=== PATIENT | male | born 1985 | race Caucasian/White ===

== ENCOUNTER 2019-04-17 00:56 | Emergency (ER) | payer SELFPAY ==
[2019-04-17 01:10] VITALS: BP 148/106; PULSE 78; RESP 16; TEMP 36.4; O2SAT 98
--- NOTE | 2019-04-17 01:19 | ED_ITS ---
I attest that this documentation has been prepared under the direction and in the presence of Eddi Palumbo MD. Kartik Winston Scribe 04/17/19;01:19 HPI - Dental/Oral General Chief complaint: Dental/Oral Stated complaint: toothache Time Seen by Provider: 04/17/19 01:12 Source: patient and RN notes reviewed Mode of arrival: ambulatory Limitations: no limitations History of Present Illness HPI Narrative: Pt is a 33 y/o male presenting to the ED c/o dental pain. Pt reports he has been experiencing constant rt sided dental pain for about 4 months. Pt states he has not been to a dentist due to financial issues. Pt denies fever or chills. Onset (ago): month(s) (4) Duration: constant Associated symptoms: other (None) Related Data Allergies Allergy/AdvReac Type Severity Reaction Status Date / Time No Known Allergies Allergy Unknown Unverified 07/21/18 14:23 Review of Systems Review of Systems: All systems reviewed & are unremarkable except as noted in HPI and below ENT: Reports dental pain (Rt sided) PMFSH Past Medical History Medical History Bronchitis Surgical History Surgical History No significant past surgical history Social History Social History Smoking packs per day: 1 Smoking cigarettes per day: 20.0 Years smoked: 11 Smoking pack-years: 11.00 Smoking status: Current every day smoker Tobacco type: cigarettes Exam Narrative: Exam Narrative: GENERAL: Well-appearing, well-nourished, and in no acute distress. HEAD: Normocephalic, atraumatic. EYES: PERRLA and EOMI. ENT: Nares clear, Mucous membranes moist. Multiple dental caries, no obvious dental abscess NECK: Supple. CHEST: Clear to auscultation. No respiratory distress. HEART: Regular rate and rhythm. No murmur heard. Normal peripheral pulses. EXTREMITIES: Normal range of motion. No edema. SKIN: Warm, dry, no rash. NEURO: No focal deficits. Alert and oriented x3. PSYCH: Normal mood and affect. Course Vital Signs Vital signs: Vital Signs Temperature 36.4 C 04/17/19 01:10 Pulse Rate 78 04/17/19 01:10 Respiratory Rate 16 04/17/19 01:10 Blood Pressure 148/106 H 04/17/19 01:10 Pulse Oximetry 98 04/17/19 01:10 Temperature 36.4 C 04/17/19 01:10 Pulse Rate 78 04/17/19 01:10 Respiratory Rate 16 04/17/19 01:10 Blood Pressure 148/106 H 04/17/19 01:10 Pulse Oximetry 98 04/17/19 01:10 Discharge Plan Discharge Clinical Impression: Toothache Patient Disposition: Home, Self-Care Condition: Stable Instructions: Toothache (ED) Additional Instructions: Follow with a Dentist. Prescriptions: New amoxicillin 500 mg tablet 500 mg PO Q8H Qty: 30 RF: 0 tramadol 50 mg tablet 50 mg PO Q6H PRN (Reason: pain) Qty: 20 RF: 0 Follow-up/Referrals: UNKNOWN,DOCTOR [Primary Care Provider] - Stand Alone Forms: Work/School Release IP Time of Disposition: 01:54 I personally performed the services described in this documentation. All medical record entries made by the scribe were at my direction and in my presen
[2019-04-17 02:03] VITALS: BP 149/99; PULSE 81; RESP 16; O2SAT 99
== END 2019-04-17 02:06 | disposition home or self-care (01) ==
PROVIDERS: Emergency Provider Family Medicine
DX: K08.89 Other specified disorders of teeth and supporting structures (principal); F17.210 Nicotine dependence, cigarettes, uncomplicated
CPT/HCPCS: 99283

== ENCOUNTER 2020-04-08 07:59 | Emergency (ER) | payer OTHER, SELFPAY ==
--- NOTE | ~2020-04-08 | XR_ITS ---
XR abdomen/kub 1V DATE: 04/08/2020 09:02 INDICATION: Mid abdominal pain, vomiting, constipation TECHNIQUE: AP projection, 2 views COMPARISON: None FINDINGS: There is a prominent amount fecal material throughout the colon, consistent with clinical c omplaint of constipation. No bowel obstruction is evident. Associated as are intact. No visceromegaly is noted. No significant abnormal calcification. Included skeletal structures are unremarkable. IMPRESSION: Prominent amount of fecal material throughout the colon, consistent with clinical complai nt of constipation Reviewed, dictated and finalized at [facility] Reviewed, dictated and finalized at [facility] [employer] IMPRESSION: Prominent amount of fecal material throughout the colon, consistent with clinical complaint of constipation
--- NOTE | ~2020-04-08 | US_ITS ---
US abdomen limited DATE: 04/08/2020 09:19 INDICATION: Right upper quadrant abdominal pain, epigastric abdominal pain TECHNIQUE: Real-time imaging of liver, pancreas, gallbladder COMPARISON: None FINDINGS: Normal hepatopedal portal venous flow. There is hepatic steatosis. No hepatic space-occupying mass lesion is evident. The pancreas is not well-demonstrated due to interference from bowel. There is an apparent filling defect of the gallbladder neck. Positive sonographic Pastrana's sign. The common bile duct measures 3.3 mm, normal. IMPRESSION: Suspected gallbladder neck stone. Positive sonographic Pastrana's sign. Consider radionuclide hepatobiliary scan if there is clinical concern for acute cholecystitis. Reviewed, dictated and finalized at [facility] Reviewed, dictated and finalized at [facility] IMPRESSION: Suspected gallbladder neck stone. Positive sonographic Pastrana's sig n. Consider radionuclide hepatobiliary scan if there is clinical concern for acute cholecystitis.
--- NOTE | 2020-04-08 08:04 | ED.ABDPAIN ---
HPI - Abdominal Pain General Chief Complaint: Abdominal Pain Stated Complaint: abd pain, vomiting Time Seen by Provider: 04/08/20 08:04 History of Present Illness HPI narrative: Upper abdominal pin and vomiting for the past 2 days. Feels like burning and squeezing. Worse after eating. He reports constipation, but had bowel movement prior to coming. He says that he had a CT done at an outside hospital which was negative. He was supposed to get an US of his gall bladder, but ended up in long-term in the mean time. His symptoms had largely improved, but just returned. Related Data Allergies Allergy/AdvReac Type Severity Reaction Status Date / Time No Known Allergies Allergy Unknown Unverified 04/08/20 08:15 Review of Systems Review of Systems: All systems reviewed & are unremarkable except as noted in HPI and below Constitutional: Constitutional: Denies fever(s) Eyes: Eyes: Reports no additional eye complaints ENT: Denies sore throat Cardiovascular: Cardiovascular: Denies chest pain Respiratory: Respiratory: Denies dyspnea Gastrointestinal: Gastrointestinal: Reports abdominal pain, Reports constipation, Reports nausea and Reports vomiting Genitourinary: Genitourinary: Reports no additional male genitourinary complaints Musculoskeletal: Musculoskeletal: Denies back pain Neurologic: Denies dizziness and Denies weakness PMFSH Past Medical History Medical History Bronchitis Surgical History Surgical History No significant past surgical history Social History Social History Smoking packs per day: 1 Smoking cigarettes per day: 20.0 Years smoked: 11 Smoking pack-years: 11.00 Smoking status: Current every day smoker Tobacco type: cigarettes Gender identity (if verbalized by the patient): Male Exam Const: General: healthy appearing, no acute distress and alert Orientation/consciousness: patient oriented x3 HENMT: Head: normal to inspection Neck: Neck: normal visual inspection and no lymphadenopathy Chest: Chest palpation & inspection: no tenderness Resp: Effort & Inspection: normal respiratory effort Auscultation: clear to auscultation bilaterally, no rales, no rhonchi and no wheezes Cardio: Jugular venous distension: no JVD Rate: regular rate Rhythm: regular rhythm Heart sounds: no murmurs GI: Inspection: distended GI Palp: Yes Soft to palpation and Yes Tenderness to palpation present (GI) (epigastric) Skin: General skin exam: normal color Neuro: General: patient oriented x3 and moves all extremities Speech: normal speech Extrem: General: no edema Psych: Appearance: well kempt Affect: normal affect Course Vital Signs Vital signs: Vital Signs Temperature 36.1 C L 04/08/20 08:12 Pulse Rate 87 04/08/20 08:12 Respiratory Rate 18 04/08/20 08:12 Blood Pressure 130/80 04/08/20 08:12 Pulse Oximetry 97 04/08/20 08:12 Temperature 36.1 C L 04/08/20 08:12 Pulse Rate 87 04/08/20 10:34 Respiratory Rate 18 04/08/20 10:34 Blood Pressure 129/80 04/08/20 10:34 Pulse Oximetry 98 04/08/20 10:34 MDM - Abdominal Pain MDM Narrative Medical decision making narrative: Very large quantity of stool on x-ray. US consistent with cholecystitis. No fever. Mild elevation in white count. Case discussed with Dr. Da Silva he will see him in clinic next week. Differential Diagnosis Differential diagnosis: Likely abdominal pain, constipation, diverticulitis, gastroenteritis, pancreatitis, small bowel obstruction and other (cholecystitis) Medical Records Attestation: I reviewed the patient's medical records. Lab Data Attestation: I reviewed the patient's lab results. Result diagrams: 04/08/20 08:24 04/08/20 08:24 Labs: Lab Results 04/08/20 04/08/20 04/08/20 Range/Units 0
[2020-04-08 08:12] VITALS: BP 130/80; PULSE 87; RESP 18; TEMP 36.1; O2SAT 97
[2020-04-08 08:31] LABS: Basophils Percent Auto 0.3 % (0.2-1.2); Eosinophils Absolute Auto 0.4 K/mm3 (0-0.3); Eosinophils Percent Auto 2.9 % (0-4.4); Hematocrit 42.4 % (42.0-52.0); Hemoglobin 14.2 g/dL (14.0-18.0); Immature Granulocyte Absolute 0.05 K/mm3 (0.00-0.031); Immature Granulocyte Percent A 0.4 % (0-0.5); Lymphocytes Absolute Auto 4.25 K/mm3 (0.9-3.2); Lymphocytes Percent Auto 31.3 % (18.3-44.2); Mean Corpuscular HGB Conc 33.5 g/dl (32-36); Mean Corpuscular Hemoglobin 30.7 pg (26-34); Mean Corpuscular Volume 91.6 fl (80-100); Mean Platelet Volume 10.3 fl (7.4-10.4); Monocytes Absolute Auto 1.2 K/mm3 (0.1-0.6); Monocytes Percent Auto 9.1 % (2.6-8.5); Neutrophils Absolute Auto 7.6 K/mm3 (1.3-6.7); Platelet Count Result 274 k/mm3 (150-375); Red Blood Count 4.63 M/mm3 (4.6-6.20); Red Cell Distribution Width 13.5 % (11.5-14.5); White Blood Count 13.6 K/mm3 (4.5-10.0)
[2020-04-08] MEDS: ONDANSETRON INJ 4 MG/2 ML VIAL IV PUSH (08:39)
[2020-04-08] MEDS: PANTOPRAZOLE SODIUM IV 40 MG VIAL IV PUSH (08:39)
[2020-04-08 08:42] LABS: Alanine Aminotransferase 23 U/L (4-50); Albumin Level 4.1 g/dL (3.5-5.1); Alkaline Phosphatase 66 U/L (38-126); Anion Gap 6 mmol/L (8-16); Aspartate Amino Transferase 24 U/L (17-59); Bilirubin,Total 0.2 mg/dL (0.2-1.3); Blood Urea Nitrogen 17 mg/dL (9-20); Calcium 8.8 mg/dL (8.4-10.2); Carbon Dioxide 32 mmol/L (22-30); Chloride 105 mmol/L (98-107); Estimated CRCL calculation 116 ml/min; Estimated Glomerular Filt Rate > 60; Glucose 131 mg/dL (75-110); Lipase 87 U/L (23-300); Potassium 3.9 mmol/L (3.4-5.0); Sodium 143 mmol/L (137-145)
[2020-04-08 09:51] LABS: Add Urine Microscopic? NO; Appearance Urine Clear (Clear); Bilirubin Urine Negative (Negative); Blood Urine Negative (Negative); Color Urine Yellow (Yellow); Glucose Urine UA Negative (Negative); Ketones Urine Negative (Negative); Leukocyte Esterase Ur Negative LEU/UL (Negative); Mucus Urine Rare /lpf; Nitrate Urine Negative (Negative); Protein Urine Negative (Negative); RBC Urine 0-2 /hpf (0-2); Specific Grav Ur 1.024 (1.001-1.035); Urobilinogen Urine Negative mg/dL (<2.0); WBC Urine 0-3 /hpf
[2020-04-08 09:54] VITALS: BP 142/100; PULSE 86; RESP 18; O2SAT 98
[2020-04-08] MEDS: CIPROFLOXACIN 500 MG TAB PO (10:33)
[2020-04-08 10:34] VITALS: BP 129/80; PULSE 87; RESP 18; O2SAT 98
== END 2020-04-08 10:36 | disposition home or self-care (01) ==
PROVIDERS: Emergency Provider Emergency Medicine
DX: K81.0 Acute cholecystitis (principal); K59.00 Constipation, unspecified; F17.210 Nicotine dependence, cigarettes, uncomplicated
CPT/HCPCS: 36415; 74018; 76705; 80053; 81003; 83690; 85025; 96374; 96375; 99284; A9270; C9113; J2405

== ENCOUNTER 2023-08-20 12:29 | Emergency (ER) | payer OTHER, SELFPAY ==
[2023-08-20 12:37] VITALS: BP 158/97; PULSE 126; RESP 20; TEMP 36.3; O2SAT 98
--- NOTE | 2023-08-20 13:33 | ED.EYEPROB ---
HPI - Eye Problem General Chief complaint: Eye Problems Stated complaint: eye problems Time Seen by Provider: 08/20/23 12:46 History of Present Illness HPI Narrative: 37-year-old male presenting with red eyes. States that his left eye started turning red approximately 4 days ago. He was seen at another facility and started on an ointment. States that since that time the redness in his left eye has gotten much worse and now his right eye is turning red. States that the left eye feels scratchy but denies significant pain or photophobia. Denies visual changes. Denies excessive tearing but states he will wake up with some drainage. No recent injuries. Does not wear contacts. Related Data Allergies Allergy/AdvReac Type Severity Reaction Status Date / Time No Known Allergies Allergy Unknown Unverified 04/08/20 08:15 Review of Systems Review of Systems: All systems reviewed & are unremarkable except as noted in HPI and below PMFSH Past Medical History Medical History (Updated 08/20/23 @ 14:03 by Cindi Kiran MD) Bronchitis Surgical History Surgical History No significant past surgical history Social History Social History Smoking packs per day: 1 Smoking cigarettes per day: 20.0 Years smoked: 11 Smoking pack-years: 11.00 Smoking status: Current every day smoker Tobacco type: cigarettes Gender identity (if verbalized by the patient): Male Exam Narrative: GENERAL: Well-appearing and in no acute distress. HEAD: Normocephalic, atraumatic. EYES: PERRLA and EOMI. Both eyes are injected, left greater than right; no chemosis, no drainage ENT: Mucous membranes moist. NECK: Supple. CHEST: No respiratory distress. HEART: Regular rate and rhythm EXTREMITIES: Normal range of motion. SKIN: Warm, dry, no rash. NEURO: Alert and oriented x3. PSYCH: Normal mood and affect. Course Vital Signs Vital signs: Vital Signs Temperature 97.3 F L 08/20/23 12:37 Pulse Rate 126 H 08/20/23 12:37 Respiratory Rate 20 08/20/23 12:37 Blood Pressure 158/97 H 08/20/23 12:37 Pulse Oximetry 98 08/20/23 12:37 Temperature 97.3 F L 08/20/23 12:37 Pulse Rate 126 H 08/20/23 12:37 Respiratory Rate 20 08/20/23 12:37 Blood Pressure 158/97 H 08/20/23 12:37 Pulse Oximetry 98 08/20/23 12:37 MDM - Eye Problem MDM Narrative Medical decision making narrative: 37-year-old male presenting with red eyes. Exam remarkable for the above. He does appear to have bilateral conjunctivitis, left worse than right. I suspect a viral cause but he does complain of thick drainage at times. Fluorescein exam was performed and no corneal abrasions were appreciated. Will discontinue the polymyxin B ointment and start the patient on Cipro drops. Advised close Ophthalmology follow-up. Appropriate return precautions given. Discharged in stable condition. Differential Diagnosis Differential diagnosis: Likely corneal abrasion, conjunctivitis and corneal ulcer Medical Records Attestation: I reviewed the patient's medical records. Lab Data Attestation: I reviewed the patient's lab results. Critical Care Time Critical Care Time Critical Care Time: No Discharge Plan Discharge Clinical Impression: Bilateral conjunctivitis Patient Disposition: Home, Self-Care Condition: Stable Instructions: Antibiotic Form, Conjunctivitis (ED) Additional Instructions: Please discontinue the appointment and start the drops. Please follow-up closely with Ophthalmology at the number below. If your symptoms worsen or other concerning symptoms arise, please return to the ER. [facility] Ophthalmology: [phone] Prescriptions: New ciprofloxacin HCl 0.3 % drops See Rx Instructions .ROUTE .COMPLEX Qty: 5 0RF Rx Instructions: put 1-2 drps in affected eye(s) every 2hr up to 8 times/day
== END 2023-08-20 14:15 | disposition home or self-care (01) ==
PROVIDERS: Emergency Provider Emergency Medicine
DX: H10.9 Unspecified conjunctivitis (principal); F17.210 Nicotine dependence, cigarettes, uncomplicated
CPT/HCPCS: 99283

== ENCOUNTER 2023-08-23 16:31 | Emergency (ER) | payer OTHER, SELFPAY ==
[2023-08-23 16:38] VITALS: BP 174/147; PULSE 77; RESP 18; TEMP 36.4; O2SAT 98
--- NOTE | 2023-08-23 18:23 | ED.EYEPROB ---
HPI - Eye Problem General Chief complaint: Eye Problems Stated complaint: eye problem Time Seen by Provider: 08/23/23 18:01 History of Present Illness HPI Narrative: 38-year-old male presents to the emergency department for red and itchy eyes for 7 days. Patient states 7 days ago his left eye became red and itchy DP days later his right a was red and itchy. He was evaluated by outside facility and started on polymyxin B ointment. He was then seen at our emergency department on 08/20/2023 for persistent symptoms. The women was discontinued and he was started on ciprofloxacin drops. States he has been using these as directed but his symptoms are continuing to get worse. He states that his eyes feel scratchy and itchy. He is reporting drainage out of his eyes and states he wakes up with matted eyes. He denies pain with extraocular movements. Denies fever or vision changes. He denies possibility of chlamydia or gonorrhea conjunctivitis. He has an appointment with [facility] ophthalmology September 02. He does not wear contacts. Related Data Allergies Allergy/AdvReac Type Severity Reaction Status Date / Time No Known Allergies Allergy Verified 08/23/23 16:47 Review of Systems Review of Systems: All systems reviewed & are unremarkable except as noted in HPI and below PMFSH Past Medical History Medical History (Updated 08/23/23 @ 19:14 by Kim Lockett PA-C) Bronchitis Surgical History Surgical History No significant past surgical history Social History Social History Smoking packs per day: 1 Smoking cigarettes per day: 20.0 Years smoked: 11 Smoking pack-years: 11.00 Smoking status: Current every day smoker Tobacco type: cigarettes Gender identity (if verbalized by the patient): Male Exam Narrative: GENERAL: Well-appearing, well-nourished, and in no acute distress. HEAD: Normocephalic, atraumatic. EYES: PERRLA and EOMI. no pain with EOMs. Bilateral conjunctiva are erythematous and injected. No chemosis, no surrounding cellulitic changes. peripheral vision intact. Fluorescein staining shows a small linear lesion around the 5:00 region on the L eye concerning for ossible developing herpetic keratitis. Increase uptake of fluorescein staining to both eyes near the 9:00 position concerning for abrasions. No ulcerations. No foreign bodies. Pressure to the L eye is 20mmHg, R eye is 17mmHg. ENT: Nares clear, no rhinorrhea or epistaxis. Mucous membranes moist. NECK: Supple. EXTREMITIES: Normal range of motion. No edema. SKIN: Warm, dry, no rash. NEURO: No focal deficits. Alert and oriented x3 Course Vital Signs Vital signs: Vital Signs Temperature 97.5 F L 08/23/23 16:38 Pulse Rate 77 08/23/23 16:38 Respiratory Rate 18 08/23/23 16:38 Blood Pressure 174/147 H 08/23/23 16:38 Pulse Oximetry 98 08/23/23 16:38 Oxygen Delivery Room Air 08/23/23 16:38 Temperature 97.5 F L 08/23/23 16:38 Pulse Rate 82 08/23/23 18:29 Respiratory Rate 18 08/23/23 18:29 Blood Pressure 159/107 H 08/23/23 18:29 Pulse Oximetry 94 08/23/23 18:29 Oxygen Delivery Room Air 08/23/23 16:38 MDM - Eye Problem MDM Narrative Medical decision making narrative: 38-year-old male presents to the emergency department for red and itchy eyes for approximately 7 days. He has been trialed on polymyxin B ointment which was discontinued 3 days ago after he was started on ciprofloxacin ointment. He has had no improvement. Symptoms worsening despite treatment. exam is significant for the above. There are no signs of preseptal or septal cellulitis given he has no complaints of vision changes, no pain with EOMs, no surrounding cellulitic changes. Exam is significant for the above, specifically bilateral corneal abrasions and a fine linear lesion along the 5 o'clock position of the left eye c
[2023-08-23 18:29] VITALS: BP 159/107; PULSE 82; RESP 18; O2SAT 94
== END 2023-08-23 19:21 | disposition home or self-care (01) ==
PROVIDERS: Emergency Provider Physician Assistant
DX: H10.9 Unspecified conjunctivitis (principal); S05.00XA Injury of conjunctiva and corneal abrasion without foreign body, unspecified eye, initial encounter; F17.210 Nicotine dependence, cigarettes, uncomplicated; X58.XXXD Exposure to other specified factors, subsequent encounter
CPT/HCPCS: 99283